=== PATIENT | female | born 1965 | race Asian ===

== ENCOUNTER 2022-10-24 12:07 | Emergency (ER) | payer SELFPAY ==
[2022-10-24 13:37] LABS: SARS-CoV-2 NAA Rapid Test DETECTED (NotDetected)
[2022-10-24] MEDS ORDERED: Acetaminophen 325 MG TAB ONE (14:56)
[2022-10-24] MEDS ORDERED: Ibuprofen 200 MG TAB ONE (14:56)
[2022-10-24] MEDS ORDERED: Albuterol 200 PUFF (6.7GM INHALER) ONE (14:56)
[2022-10-24 16:15] LABS: ALT (SGPT) 30 U/L (8-55); AST (SGOT) 33 U/L (5-34); Albumin 4.3 g/dL (3.5-5.0); Alkaline Phosphatase 32 U/L (40-110); Anion Gap 15 mmol/L (10-20); BUN (Urea Nitrogen) 16 mg/dL (9.8-20.1); Bilirubin, Total 0.4 mg/dL (0.2-1.2); Calc. Creatinine Clearance 0 mL/min (70-130); Calcium 8.9 mg/dL (7.8-10.44); Carbon Dioxide 22 mmol/L (22-29); Chloride 101 mmol/L (98-107); Estimated GFR 82; Globulin 3.3 g/dL (2.4-3.5); Glucose 103 mg/dL (70-105); Potassium 3.7 mmol/L (3.5-5.1); Protein, Total 7.6 g/dL (6.0-8.3); Sodium 134 mmol/L (136-145)
== END 2022-10-24 16:30 | disposition home or self-care (01) ==
LOC: ERS 12:07
DX: U07.1 COVID-19 (principal); E11.9 Type 2 diabetes mellitus without complications; E78.00 Pure hypercholesterolemia, unspecified; I10 Essential (primary) hypertension; Z79.899 Other long term (current) drug therapy; Z79.84 Long term (current) use of oral hypoglycemic drugs
CPT/HCPCS: 36415; 71045; 80053; 87081; 87430